=== PATIENT | female | born 1935 | race Two or more races ===

== ENCOUNTER → 2018-11-22 | Outpatient (CLI) | payer OTHER ==
[~2018-11-22] MED LIST: DOLOGEN CAPLET1 EACH PO; FOLIC ACID1 MG PO; FOSAMAX70 MG PO; NABUMETONE500 MG PO; NORVASC5 MG PO; PERCOCET 5/3251 TAB PO; TOPROL XL25 MG PO; VASOTEC10 MG NGT; ZETIA10 MG PO
== END | disposition home or self-care (01) ==
LOC: MRI 10:56
DX: M16.11 Unilateral primary osteoarthritis, right hip (principal); M24.851 Other specific joint derangements of right hip, not elsewhere classified
CPT/HCPCS: 73721

== ENCOUNTER 2018-12-20 08:08 | Outpatient (CLI) | payer OTHER | END 2018-12-20 08:12 | disposition home or self-care (01) | LOC: RAD 08:08 | DX: M25.551 Pain in right hip (principal); M25.552 Pain in left hip ==

== ENCOUNTER 2019-01-31 10:03 | Outpatient (CLI) | payer OTHER | END 2019-01-31 10:09 | disposition home or self-care (01) | LOC: RAD 10:03 | DX: M54.16 Radiculopathy, lumbar region (principal); M54.5 Low back pain ==

== ENCOUNTER 2019-11-23 10:57 | Outpatient (CLI) | payer OTHER | END 2019-11-23 11:01 | disposition home or self-care (01) | LOC: RAD 10:57 | DX: M17.11 Unilateral primary osteoarthritis, right knee (principal) ==

== ENCOUNTER 2020-10-10 15:10 | Outpatient (CLI) | payer OTHER | END 2020-10-10 15:30 | disposition home or self-care (01) | LOC: RAD 15:10 | PROVIDERS: ATTEND Internal Medicine Geriatric Medicine | DX: M17.0 Bilateral primary osteoarthritis of knee (principal); M16.0 Bilateral primary osteoarthritis of hip ==

== ENCOUNTER 2021-02-03 10:56 | Outpatient (CLI) | payer OTHER | END 2021-02-03 11:14 | disposition home or self-care (01) | LOC: MRI 10:56 | PROVIDERS: ATTEND Orthopaedic Surgery | DX: M54.5 Low back pain (principal) | CPT/HCPCS: 72148 ==

== ENCOUNTER 2021-03-04 11:51 | Outpatient (CLI) | payer OTHER | END 2021-03-04 12:00 | disposition home or self-care (01) | LOC: RAD 11:51 | PROVIDERS: ATTEND Physical Medicine & Rehabilitation | DX: M54.6 Pain in thoracic spine (principal); M54.2 Cervicalgia; M17.11 Unilateral primary osteoarthritis, right knee; M54.5 Low back pain ==

== ENCOUNTER 2021-03-17 10:33 | Outpatient (CLI) | payer OTHER | END 2021-03-17 10:46 | disposition home or self-care (01) | LOC: MRI 10:33 | PROVIDERS: ATTEND Neuromusculoskeletal Medicine & OMM | DX: G20 Parkinson's disease (principal) | CPT/HCPCS: 70551 ==

== ENCOUNTER 2021-06-04 10:14 | Outpatient (CLI) | payer OTHER | END 2021-06-04 10:15 | disposition home or self-care (01) | LOC: LAB 10:14 | PROVIDERS: ATTEND Radiology Diagnostic Radiology | DX: N18.9 Chronic kidney disease, unspecified (principal) ==

== ENCOUNTER 2021-06-10 11:30 | Outpatient (CLI) | payer OTHER | END 2021-06-10 11:43 | disposition home or self-care (01) | LOC: MRI 11:30 | PROVIDERS: ATTEND Neuromusculoskeletal Medicine & OMM | DX: I65.22 Occlusion and stenosis of left carotid artery (principal) | CPT/HCPCS: 70548; A9575; 70547 ==

== ENCOUNTER 2022-02-01 09:02 | Outpatient (CLI) | payer OTHER | END 2022-02-01 09:08 | disposition home or self-care (01) | LOC: RAD 09:02 | DX: Z01.812 Encounter for preprocedural laboratory examination (principal); I10 Essential (primary) hypertension; Z13.9 Encounter for screening, unspecified ==

== ENCOUNTER → 2023-01-25 09:14 | Outpatient (CLI) | payer OTHER | END | disposition home or self-care (01) | LOC: NUCLEAR 09:14 | PROVIDERS: ATTEND Internal Medicine Geriatric Medicine | DX: M15.0 Primary generalized (osteo)arthritis (principal); M81.0 Age-related osteoporosis without current pathological fracture ==

== ENCOUNTER 2023-05-31 14:52 | Outpatient (CLI) | payer OTHER | END 2023-05-31 14:57 | disposition home or self-care (01) | LOC: RAD 14:52 | PROVIDERS: ATTEND Internal Medicine Rheumatology | DX: M15.0 Primary generalized (osteo)arthritis (principal) ==

== ENCOUNTER 2023-09-08 14:00 | Emergency (ER) | payer OTHER ==
[~2023-09-08] VITALS: Ht 165.1 cm; Wt 68.0 kg
[2023-09-08] MEDS ORDERED: AMLODIPINE-OLM1 EAC2 PO (14:31)
[2023-09-08] MEDS ORDERED: FUROsemide 20 MG/2 ML VIAL IV ONE (15:15)
[2023-09-08 15:24] LABS: HEMATOCRIT 32.6 % (36.0-45.00); HEMOGLOBIN 10.8 g/dL (12.0-15.00); MEAN CELL VOLUME 92.8 fL (80.00-100.00); MEAN CORPUSCULAR HEMOGLOBIN 30.8 pg (27.00-32.0); MEAN CORPUSCULAR HGB CONC 33.2 g/dl (32.0-36.0); PLATELET COUNT 191 K/uL (150-450); RED BLOOD COUNT 3.52 M/uL (4.00-6.00); RED CELL DISTRIBUTION WIDTH 12.9 % (11.5-14.5)
[2023-09-08 15:47] LABS: ALBUMIN 3.6 gm/dL (3.4-5.0); BILIRUBIN TOTAL 0.63 mg/dL (0.3-1.2); CALCIUM 9.6 mg/dL (8.5-10.1); CREATININE SERUM 1.18 mg/dL (0.55-1.02); GFR 43.43; GLOBULINA 3.7 G/DL (2.4-3.5); POTASSIUM 4.14 mEq/L (3.5-5.1); TOTAL PROTEIN 7.3 gm/dL (6.4-8.2)
[2023-09-08] MEDS ORDERED: ALDACTONE25 MG PO (16:31)
== END 2023-09-08 16:39 | disposition home or self-care (01) ==
LOC: ER 14:00
PROVIDERS: General Practice
DX: R60.0 Localized edema (principal); I10 Essential (primary) hypertension
CPT/HCPCS: 36415; 71046; 96365; 99283; J1940

== ENCOUNTER 2023-12-22 07:30 | Outpatient (CLI) | payer OTHER ==
[~2023-12-22 07:30] MED LIST changes: +ALDACTONE25 MG PO; +AMLODIPINE-OLM1 EAC2 PO
[2023-12-22 09:18] LABS: ALBUMIN 3.5 gm/dL (3.4-5.0); BILIRUBIN TOTAL 0.7 mg/dL (0.3-1.2); CALCIUM 9.7 mg/dL (8.5-10.1); CREATININE SERUM 1.27 mg/dL (0.55-1.02); GFR 39.9; GLOBULINA 3.4 G/DL (2.4-3.5); PHOSPHOROUS 3.2 mg/dL (2.5-4.9); POTASSIUM 4.83 mEq/L (3.5-5.1); TOTAL PROTEIN 6.9 gm/dL (6.4-8.2)
[2023-12-23 17:06] LABS: CALCIUM IONIZED 5.1 mg/dL (4.5-5.6)
[2023-12-28 13:07] LABS: VITAMIN K 0.32 ng/mL (0.10-2.20)
== END 2023-12-22 07:37 | disposition home or self-care (01) ==
LOC: LAB 07:30
PROVIDERS: ATTEND Orthopaedic Surgery
DX: E55.9 Vitamin D deficiency, unspecified (principal); M85.9 Disorder of bone density and structure, unspecified; E56.1 Deficiency of vitamin K; E21.3 Hyperparathyroidism, unspecified; E88.89 Other specified metabolic disorders; M81.8 Other osteoporosis without current pathological fracture

== ENCOUNTER 2024-02-19 10:26 | Emergency (ER) | payer OTHER ==
[~2024-02-19] VITALS: Ht 162.6 cm; Wt 56.7 kg
[2024-02-19] MEDS ORDERED: ATORVASTATIN CA40 MG PO (11:04)
[2024-02-19] MEDS ORDERED: CANDESARTAN-HC1 EAC2 PO (11:04)
[2024-02-19] MEDS ORDERED: 0.9 % SODIUM CHLORIDE 1,000 ML IV ONE (11:30)
[2024-02-19] MEDS ORDERED: ONDANSETRON HCL 2 MG/ML VIAL IV ONE (11:30)
[2024-02-19] MEDS ORDERED: FAMOtidine 10 MG/ML (4ML VIAL) IV ONE (11:30)
[2024-02-19] MEDS ORDERED: ONDANSETRON HCL 2 MG/ML VIAL ONE (11:47)
[2024-02-19] MEDS ORDERED: FAMOTIDINE/PF 20 MG/2 ML VIAL ONE ×2 (11:47→11:49)
[2024-02-19 12:10] LABS: HEMOGLOBIN 11.2 g/dL (12.0-15.00); MEAN CELL VOLUME 92.6 fL (80.00-100.00); MEAN CORPUSCULAR HEMOGLOBIN 31.5 pg (27.00-32.0); PLATELET COUNT 180 K/uL (150-450); RED BLOOD COUNT 3.57 M/uL (4.00-6.00); RED CELL DISTRIBUTION WIDTH 13.9 % (11.5-14.5)
[2024-02-19 12:41] LABS: ALBUMIN 3.8 gm/dL (3.4-5.0); BILIRUBIN TOTAL 0.63 mg/dL (0.3-1.2); CALCIUM 9.9 mg/dL (8.5-10.1); CREATININE SERUM 1.24 mg/dL (0.55-1.02); GFR 40.92; POTASSIUM 4.41 mEq/L (3.5-5.1); TOTAL PROTEIN 6.8 gm/dL (6.4-8.2)
[2024-02-19 13:50] LABS: PH,URINE 7.5 (5.0-8.0); URINE APPEARANCE Clear; URINE BILIRRUBIN Negative (NEGATIVE); URINE BLOOD Negative; URINE COLOR Yellow; URINE GLUCOSE Negative (NEGATIVE); URINE KETONE Negative (NEGATIVE); URINE LEUKOCYTE Negative; URINE NITRATE Negative; URINE PROTEIN Negative (NEGATIVE)
[2024-02-19 13:53] LABS: URINE BACTERIA 27.7 uL (0.0-1933); URINE EPITHELIAL CELLS 1.6 uL (0.0-38.8); URINE WBC 6.1 uL (0.0-23.2)
[2024-02-19 14:09] LABS: URINE CAST 0.15 uL (0.0-1.40)
== END 2024-02-19 18:02 | disposition home or self-care (01) ==
LOC: ER 10:28
PROVIDERS: General Practice
DX: R10.11 Right upper quadrant pain (principal); R10.9 Unspecified abdominal pain; I10 Essential (primary) hypertension
CPT/HCPCS: 36415; 71045; 74177; 93005; 96365; 96366; 99284; J2405; J3490; J7030; Q9965

== ENCOUNTER 2024-11-17 08:38 | Emergency (ER) | payer OTHER ==
[~2024-11-17] VITALS: Ht 162.6 cm; Wt 59.0 kg
[~2024-11-17 08:38] MED LIST changes: +ATORVASTATIN CA40 MG PO; +CANDESARTAN-HC1 EAC2 PO
[2024-11-17] MEDS ORDERED: HYDRALAZINE HCL25 MG PO (08:46)
== END 2024-11-17 21:23 | disposition home or self-care (01) ==
LOC: ER 08:38
DX: S42.032A Displaced fracture of lateral end of left clavicle, initial encounter for closed fracture (principal); W18.39XA Other fall on same level, initial encounter; Y93.89 Activity, other specified; Y92.018 Other place in single-family (private) house as the place of occurrence of the external cause; S72.115A Nondisplaced fracture of greater trochanter of left femur, initial encounter for closed fracture; E78.00 Pure hypercholesterolemia, unspecified; I10 Essential (primary) hypertension; E03.8 Other specified hypothyroidism

== ENCOUNTER 2025-02-04 07:13 | Emergency (ER) | payer OTHER ==
[~2025-02-04] VITALS: Ht 157.5 cm; Wt 49.9 kg
[~2025-02-04 07:13] MED LIST changes: +HYDRALAZINE HCL25 MG PO
[2025-02-04] MEDS ORDERED: CLOPIDOGREL BIS75 MG (07:14)
[2025-02-04 09:35] LABS: BASO % 0.4 % (0.1-1.2); EOS # 0.10 (0.04-0.54); EOS % 1.8 % (0.7-7.0); LYMPH # 1.05 (1.18-3.74); LYMPH % 18.4 % (19.3-53.1); MEAN PLATELET VOLUME 11.10 fl (9.4-12.4); MONO # 0.32 (0.24-0.82); MONO % 5.6 % (4.7-12.5); NEUT # 4.20 (1.56-6.13); NEUT % 73.4 % (34.0-71.1); RED CELL DISTRIBUTION WIDTH 12.2 % (11.6-14.4)
[2025-02-04 10:13] LABS: INR 1.0
[2025-02-04 10:15] LABS: ALT/SGPT 19.0 U/L (12-78); AST/SGOT 18.0 U/L (15-37); BILIRUBIN TOTAL 0.77 mg/dL (0.3-1.2); BUN CREA RATIO 14.0 (7.0-25.0); CREATININE SERUM 1.03 mg/dL (0.55-1.02); GFR 50.69; GLOBULINA 3.4 G/DL (2.4-3.5); GLUCOSE FASTING 98.0 mg/dL (65-100); OSMOLALITY SERUM 284.0 MOSM/KG (275-295)
[2025-02-04 13:01] LABS: URINE APPEARANCE Clear; URINE BILIRRUBIN Negative (NEGATIVE); URINE BLOOD Negative; URINE COLOR Yellow; URINE GLUCOSE Negative (NEGATIVE); URINE KETONE Trace (NEGATIVE); URINE LEUKOCYTE Trace; URINE NITRATE Negative; URINE PROTEIN Negative (NEGATIVE); URINE UROBILINOGEN 1.0 E.U./dl
[2025-02-04 13:04] LABS: URINE BACTERIA 715.0 uL (0.0-1933); URINE EPITHELIAL CELLS 6.6 uL (0.0-38.8); URINE RBC 5.7 uL (0.0-20.8); URINE WBC 18.9 uL (0.0-23.2)
[2025-02-04 13:16] LABS: URINE CAST 0.00 uL (0.0-1.40)
[2025-02-04] MEDS ORDERED: BACTRIM DS TAB1 EACH PO (13:25)
[2025-02-04] MEDS ORDERED: PEPCID AC20 MG PO (13:25)
== END 2025-02-04 15:36 | disposition home or self-care (01) ==
LOC: ER 07:35
PROVIDERS: General Practice
DX: S09.19XA Other specified injury of muscle and tendon of head, initial encounter (principal); M25.552 Pain in left hip; W18.39XA Other fall on same level, initial encounter; Y93.89 Activity, other specified; Y92.89 Other specified places as the place of occurrence of the external cause; G20.A1 Parkinson's disease without dyskinesia, without mention of fluctuations; F02.80 Dementia in other diseases classified elsewhere, unspecified severity, without behavioral disturbance, psychotic disturbance, mood disturbance, and anxiety; I10 Essential (primary) hypertension